=== PATIENT | female | born 1950 | race Caucasian/White ===

== ENCOUNTER 2017-10-04 17:05 | Emergency (ER) | payer MEDICARE, OTHER ==
[2017-10-04 17:19] VITALS: BP 138/90; PULSE 87; RESP 16; TEMP 97.9
--- NOTE | 2017-10-04 17:50 | ED ---
General Adult HPI - General Source: patient Mode of arrival: ambulatory Limitations: no limitations <Donna Foote - Last Filed: 10/04/17 18:14> <Leon Martinez - Last Filed: 10/05/17 10:21> - General Chief complaint: Recheck/Abnormal Lab/Rx Stated complaint: Needs meds refilled/ca pt Time Seen by Provider: 10/04/17 17:28 - History of Present Illness Initial comments: 66-year-old female with past medical history of hypertension and colon cancer with metastases to the liver and lymph nodes who presents today for chief complaint I ran out of my pills. Patient stated that her mother recently and owned property in [place]. Pt traveled to her estate and ended up staying longer than anticipated running out of her medications of oxycodone and metoprolol tartate 50mg. Pt called the cancer center in [facility], who told her to go to emergency department [place] for 3 days worth of prescription. Patient followed these instructions however at the emergency department Would not accept her insurance. Patient was told to emergency department in [place]. Patient denies any recent fever, chills, shortness of breath, chest pain , new back pain, abdominal pain, nausea or vomiting, numbness or tingling, dysuria or hematuria, constipation or diarrhea, headaches or visual changes, or any other complaints. Vital signs stable. (Donna Foote) - Related Data Previous Rx's Medication Instructions Recorded Metoprolol Tartrate [Lopressor] 50 mg PO DAILY 4 Days #4 tab 10/04/17 oxyCODONE-APAP 7.5-325MG [Percocet 1 tab PO Q6HR PRN 3 Days #12 tab 10/04/17 7.5-325 mg] Allergies Allergy/AdvReac Type Severity Reaction Status Date / Time latex Allergy Rash/Hives Verified 10/04/17 17:14 Review of Systems ROS Other: All systems not noted in ROS Statement are negative. Constitutional: Denies: fever, chills Eyes: Denies: vision change ENT: Denies: hearing loss Respiratory: Denies: cough, dyspnea Cardiovascular: Denies: chest pain, palpitations Endocrine: Denies: fatigue Gastrointestinal: Denies: abdominal pain, nausea, vomiting, diarrhea, constipation Genitourinary: Denies: urgency, dysuria, frequency Musculoskeletal: Denies: back pain Skin: Denies: rash, lesions Neurological: Denies: headache, weakness, numbness, paresthesias, confusion <Donna Foote - Last Filed: 10/04/17 18:14> ROS Other: All systems not noted in ROS Statement are negative. <Leon Martinez - Last Filed: 10/05/17 10:21> ROS Statement: Those systems with pertinent positive or pertinent negative responses have been documented in the HPI. Past Medical History Past Medical History: Cancer, Hypertension Additional Past Medical History / Comment(s): colon cancer with lymph node and liver involvement, with spot near spleen History of Any Multi-Drug Resistant Organisms: None Reported Additional Past Surgical History / Comment(s): HiPec, colon resection, artifical mesh lining to abdomen due chemo destroying pt lining Past Psychological History: No Psychological Hx Reported Smoking Status: Former smoker Past Alcohol Use History: None Reported Past Drug Use History: None Reported <Donna Foote - Last Filed: 10/04/17 18:14> General Exam Limitations: no limitations <Donna Foote - Last Filed: 10/04/17 18:14> <Leon Martinez - Last Filed: 10/05/17 10:21> - General Exam Comments Initial Comments: General: The patient is awake and alert, in no distress, and does not appear acutely ill. Pleasant, well appearing. Eye: Pupils are equal, round and reactive to light, extra-ocular movements are intact. No nystagmus. There is normal conjunctiva bilaterally. No signs of icterus. Ears, nose, mouth and throat: There are moist mucous membranes and no oral lesions. Neck: The neck is supple, there is no tenderness or JVD. Cardiovascular: There is a regular rate and rhythm. No murmur, rub or gallop is appreciated. Respiratory: Lungs are clear to auscultation, respirations are non-labored, breath sounds are equal. No wheezes, stridor, rales, or rhonchi. Gastrointestinal: Multiple large surgical scars over abdomen. Musculoskeletal: Radial pulses equal bilaterally 2+. Neurological: A&O x 3. CN II-XII intact, There are no obvious motor or sensory deficits. Coordination appears grossly intact. Speech is normal. Skin: Skin is warm and dry and no rashes or lesions are noted. Psychiatric: Cooperative, appropriate mood & affect, normal judgment. (Donna Foote) Course <Donna Foote - Last Filed: 10/04/17 18:14> <Leon Martinez - Last Filed: 10/05/17 10:21> Vital Signs 10/04/17 17:14 Temperature 97.9 F Pulse Rate 87 Respiratory 16 Rate Blood Pressure 138/90 O2 Sat by Pulse 100 Oximetry - Reevaluation(s) Reevaluation #1: 10/05/17 10:20 PA supervision: I reviewed and agree with the PAs findings including all diagnostic interpretations and treatment plans. I had previously discuss this with the PA as well as with the triage nursing staff. (Leon Martinez) Medical Decision Making <Donna Foote - Last Filed: 10/04/17 18:14> <Leon Martinez - Last Filed: 10/05/17 10:21> - Medical Decision Making Case discussed in detail with Dr. Martinez. At this time we feel comfortable giving patient 3-4 day supply of both medications. Patient was talked about opiate abuse and the opioid start talking she was discussed in detail with patient. Patient was discharged in stable condition. (Donna Foote) Disposition Is patient prescribed a controlled substance at d/c from ED?: Yes When asked, does pt state using other controlled substances?: No If prescribed controlled substance>3 days was MAPS reviewed?: Prescribed <3 Days If opioid is for acute pain is fill amount 7 days or less?: Yes If Rx opioid, was Start Talking consent form obtained?: Yes Time of Disposition: 17:52 <Donna Foote - Last Filed: 10/04/17 18:14> <Leon Martinez - Last Filed: 10/05/17 10:21> Clinical Impression: Encounter for medication refill Disposition: HOME SELF-CARE Condition: Good Additional Instructions: Please use medication as discussed. Prescriptions: Metoprolol Tartrate [Lopressor] 50 mg PO DAILY 4 Days #4 tab oxyCODONE-APAP 7.5-325MG [Percocet 7.5-325 mg] 1 tab PO Q6HR PRN 3 Days #12 tab PRN Reason: Pain Referrals: None,Stated [Primary Care Provider] - 1-2 days
== END 2017-10-04 18:13 | disposition home or self-care (01) ==
LOC: EC 17:05
DX: Z76.0 Encounter for issue of repeat prescription (principal); C78.7 Secondary malignant neoplasm of liver and intrahepatic bile duct; C77.9 Secondary and unspecified malignant neoplasm of lymph node, unspecified; Z87.891 Personal history of nicotine dependence; Z91.040 Latex allergy status; Z85.038 Personal history of other malignant neoplasm of large intestine; Z92.21 Personal history of antineoplastic chemotherapy; Z90.49 Acquired absence of other specified parts of digestive tract
CPT/HCPCS: 99281